=== PATIENT | female | born 1970 | race Caucasian/White ===

== ENCOUNTER 2023-09-14 09:46 | Emergency (ER) | payer OTHER, SELFPAY ==
[2023-09-14 10:02] VITALS: BP 195/105; PULSE 83; RESP 18; TEMP 36.4; O2SAT 98; BMI 27.7
[2023-09-14 10:41] VITALS: BP 190/96; PULSE 72; O2SAT 100
[2023-09-14 11:00] VITALS: BP 172/92; PULSE 68; O2SAT 96
--- NOTE | 2023-09-14 11:17 | ED_ITS ---
HPI - Recheck/Abnormal Lab/Rx <Forrest Nguyen PA-C - Last Filed: 09/14/23 11:39> General Chief Complaint: Recheck/Abnormal Lab/Rx Stated Complaint: sent by [facility], high BP Time Seen by Provider: 09/14/23 11:07 Source: patient Mode of arrival: Ambulatory History of Present Illness HPI narrative: This is a 52-year-old female presents emergency department due to elevated blood pressure readings. She states that her blood pressure was in the ?180s? at the [employer] appointment she had last week. She states she is bought a home blood pressure cuff and had blood pressures systolic readings between 150 and 190. She denies any chest pain, shortness of breath, abdominal pain, does report a mild headache. Denies any slurred speech, weakness, numbness, or any other concerning signs or symptoms. Related Data Previous Rx's Medication Instructions Recorded lisinopril 10 mg tablet 10 mg PO DAILY #30 tabs 09/14/23 Allergies Allergy/AdvReac Type Severity Reaction Status Date / Time INGREDIENT: NO KNOWN - NO Allergy Unknown Uncoded 09/14/23 10:07 KNOWN DRUG ALLERGY Review of Systems <Forrest Nguyen PA-C - Last Filed: 09/14/23 11:39> Review of Systems Narrative: GENERAL: Denies chills, fatigue, malaise, fever, sweats. HEENT: Denies sinus pain, ear pain, sore throat, difficulty swallowing, dizziness. RESPIRATORY: Denies dyspnea, cough, wheezing, hemoptysis, sputum. CARDIOVASCULAR: Denies chest pain, palpitations, orthopnea, edema, GASTROINTESTINAL: Denies nausea, vomiting, abdominal pain, diarrhea, constipation, melena. : Denies dysuria, frequency, incontinence, hematuria, urinary retention. MUSCULOSKELETAL: denies weakness, joint pain, or bony pain SKIN: Denies rash, skin lesions, or other NEUROLOGIC: Denies weakness, headache, numbness, change in speech, confusion, seizures, incoordination. PSYCHIATRIC: No concerning psychosocial issues. 12 point review of systems is negative except for those stated above Patient History <Forrest Nguyen PA-C - Last Filed: 09/14/23 11:39> Social History Smoking Status: Former smoker Smoking Status: Former smoker alcohol intake frequency: 0-2 drinks per day Substance Use Type: does not use Exam <Forrest Nguyen PA-C - Last Filed: 09/14/23 11:39> Narrative Exam Narrative: GENERAL: Well-developed patient, in mild distress. HEAD: Atraumatic. Normocephalic. EYES: Pupils equal round and reactive. Extraocular motions intact. No scleral icterus. No injection or drainage. ENT: Nose without bleeding, purulent drainage. Throat without erythema, tonsillar hypertrophy or exudate. Airway patent. NECK: Trachea midline. Non tender CARDIOVASCULAR: Regular rate and rhythm without murmurs, gallops, or rubs. RESPIRATORY: Clear to auscultation. Breath sounds equal bilaterally. No wheezes, rales, or rhonchi. GASTROINTESTINAL: Abdomen soft, non-tender, nondistended. EXTREMITIES: No edema or joint tenderness. BACK: Nontender without deformity or crepitance. No flank tenderness. NEURO: AOx3. SKIN: No rash or erythema of visible areas Initial Vital Signs Initial Vital Signs: Vital Signs Temperature 97.5 F L 09/14/23 10:02 Pulse Rate 83 09/14/23 10:02 Respiratory Rate 18 09/14/23 10:02 Blood Pressure 195/105 H 09/14/23 10:02 Pulse Oximetry 98 09/14/23 10:02 Oxygen Delivery Method Room Air 09/14/23 10:02 <Rema Valdez DO - Last Filed: 09/15/23 07:33> Initial Vital Signs Initial Vital Signs: Vital Signs Temperature 97.5 F L 09/14/23 10:02 Pulse Rate 83 09/14/23 10:02 Respiratory Rate 18 09/14/23 10:02 Blood Pressure 195/105 H 09/14/23 10:02 Pulse Oximetry 98 09/14/23 10:02 Oxygen Delivery Method Room Air 09/14/23 10:02 Course <Forrest Nguyen PA-C - Last Filed: 09/14/23 11:39> Vital Signs Vital signs: Vital Signs - 8 hr 09/14/23 10:02 09/14/23 10:41 09/14/23 10:41 Temperature 97.5 F L Pulse Rate 83 72 Respiratory Rate 18 Blood Pressure 195/105 H 190/96 H Pulse Oximetry 98 100 Oxygen Delivery Method Room Air 09/14/23 11:00 09/14/23 11:00 09/14/23 11:18 Temperature Pulse Rate 68 Respiratory Rate Blood Pressure 172/92 H 165/102 H Pulse Oximetry 96 Oxygen Delivery Method 09/14/23 11:18 Temperature Pulse Rate 75 Respiratory Rate Blood Pressure Pulse Oximetry 96 Oxygen Delivery Method <Rema Valdez DO - Last Filed: 09/15/23 07:33> Vital Signs Vital signs: Vital Signs - 8 hr 09/14/23 10:02 09/14/23 10:41 09/14/23 10:41 Temperature 97.5 F L Pulse Rate 83 72 Respiratory Rate 18 Blood Pressure 195/105 H 190/96 H Pulse Oximetry 98 100 Oxygen Delivery Method Room Air 09/14/23 11:00 09/14/23 11:00 09/14/23 11:18 Temperature Pulse Rate 68 Respiratory Rate Blood Pressure 172/92 H 165/102 H Pulse Oximetry 96 Oxygen Delivery Method 09/14/23 11:18 Temperature Pulse Rate 75 Respiratory Rate Blood Pressure Pulse Oximetry 96 Oxygen Delivery Method MDM - Recheck/Abnormal Lab/Rx <Forrest Nguyen PA-C - Last Filed: 09/14/23 11:39> MDM Narrative Medical decision making narrative: MDM * differential diagnosis includes but not limited to hypertensive emergency, hypertensive urgency, elevated blood pressure readings, CVA, ACS * Prior records reviewed: Patient has not been here in the past * My lab interpretation: None obtained * My imgaing interpretation: None obtained * Clinical Decision Rules/Scores evaluated: None * Independent discussions with: None ED Course: This is a 52-year-old female presents to the emergency department due to elevated blood pressure readings with systolics between the 150s and 190s. She reports a mild headache but does not describe any neuro changes or any other concerning symptoms that would necessitate a head CT. She isn't having any chest pain or shortness of breath or abdominal pain or any other symptoms to workup. Patient will be started on lisinopril 10 mg daily and advised to establish with a primary care provider in the area for further management and care. Shared Decision Making: Discussed plan with the patient who is comfortable with the plan. Social Considerations: None Disposition: Discharged home Discharge Plan Departure Patient Disposition: Home Clinical Impression: Elevated blood pressure reading Activity Restrictions/Additional Instructions: Thank you for coming to the [facility] Emergency Department today. Your blood pressures have seem to be elevated at this time I have low suspicion for any kind of acute emergent condition. We will start you on a low dose of anti hypertensive medication which should help with the your blood pressure. Please do your absolute best to establish with a primary care provider as blood pressure control needs long-term management and follow up for correct titrating of the medication. He may use the business card gave you to establish with a primary care provider in the area by also strongly urge you to establish with a primary care provider that is able to see you as soon as possible. I hope you feel better soon. Please follow up with your primary care provider within a week if your symptoms continue. If you do not have a primary care provider please contact the [facility] Resource line at [phone]. They will ask some questions about your medical history and help you get set up with a provider in the community. Prescriptions: New lisinopril 10 mg tablet 10 mg PO DAILY Qty: 30 1RF Referrals: Miscellaneous,Doctor, [Primary Care Provider] - Stand Alone Forms: Patient Portal/API ED Sign-out <Rema Valdez DO - Last Filed: 09/15/23 07:33> Cosign ED Attending Nitishature Attestation: I was immediately available in the department for consultation. Documentation has been reviewed.
[2023-09-14 11:18] VITALS: BP 165/102; PULSE 75; O2SAT 96
[2023-09-14 11:30] VITALS: BP 156/93; PULSE 70; O2SAT 95
== END 2023-09-14 11:45 | disposition home or self-care (01) ==
PROVIDERS: Emergency Provider Physician Assistant Medical
DX: I10 Essential (primary) hypertension (principal)
CPT/HCPCS: 99281